=== PATIENT | female | born 1975 | race Two or more races ===

== ENCOUNTER → 2024-07-12 | Outpatient (CLI) | payer MEDICAID, SELFPAY ==
[2024-07-09 16:34] LABS: Basophils % (Auto) 0 % (0-2.5); Eosinophils % (Auto) 0 % (0-10); Hematocrit 37.6 % (36.0-46.0); Hemoglobin 12.5 g/dL (12.0-16.0); Immature Granulocytes % (Auto) 0 % (0-0); Immature Granulocytes Auto 0.02 Thou/mm3 (0.00-0.00); Lymphocytes # (Auto) 1.9 Thou/mm3 (1.0-4.8); Lymphocytes % (Auto) 20 % (10-50); Mean Corpuscular HGB Conc 33.2 g/dl (31.0-37.0); Mean Corpuscular Hemoglobin 28.1 pg (25.0-35.0); Mean Corpuscular Volume 85 fL (80-100); Monocytes % (Auto) 11 % (0-12); Neutrophils # (Auto) 6.5 Thou/mm3 (1.8-7.7); Neutrophils % (Auto) 68 % (37-80); Nucleated Red Blood Cell % 0 /100 WBC (0); Platelet Count 335 Thou/mm3 (140-440); RDW Standard Deviation 44.2 fL (36.4-46.3); Red Blood Count 4.45 Miln/mm3 (4.00-5.20); White Blood Count 9.5 Thou/mm3 (3.6-11.0)
[2024-07-09 16:47] LABS: HCG,Qualitative Serum Negative
[2024-07-09 17:09] LABS: Partial Thromboplastin Time 26.8 Seconds (22.0-36.0)
--- NOTE | 2024-07-12 08:30 | XR_ITS ---
Examination: Breast ultrasound complete, bilateral Date and time of exam: July 12, 2024 0934 hours INDICATIONS: Left breast pain 6 months preop Technique: Real-time grayscale ultrasonographic imaging bilateral breasts, including all 4 quadrants as well as nipple retroareolar and axillary regions. Findings: Sonographic images right breast 2:00 cyst 4 x 4 millimeter Sonographic images left breast 3:00 cyst 3 x 2 mm 11:00 cyst 5 x 3 mm No solid nodules IMPRESSION: Tiny bilateral benign breast cysts
== END | disposition home or self-care (01) ==
LOC: SDIM 08:00 → SIRX 08:03
PROVIDERS: Radiology Diagnostic Radiology; PCP Behavior Technician; Referring Provider Behavior Technician; Visit Provider Behavior Technician
DX: N60.02 Solitary cyst of left breast (principal); N60.01 Solitary cyst of right breast; Z53.8 Procedure and treatment not carried out for other reasons; Z01.812 Encounter for preprocedural laboratory examination
CPT/HCPCS: 36415; 76641; 84703; 85025; 85610; 85730